=== PATIENT | male | born 1990 | race Two or more races ===

== ENCOUNTER 2021-07-20 19:03 | Emergency (ER) | payer MEDICAID ==
[~2021-07-20] VITALS: Ht 182.9 cm; Wt 80.0 kg
[~2021-07-20 19:03] MED LIST: AMOX1TAB64 PO; BISA10SU54 PR; BUPR1FIL5 SL; CHOL10003 PO; DOXY100T23 PO; FLUC100T PO; ONDA8TAB9 PO; OXYB5TAB10 PO; SIMV20TA19 PO
[2021-07-20 21:08] LABS: BASOPHILS % (AUTO) 0 % (0-1); EOSINOPHILS % (AUTO) 0 % (1-7); LYMPHOCYTES % (AUTO) 22 % (22-44); MEAN CORPUSCULAR HEMOGLOBIN 29.2 pg (27.5-34.5); MEAN CORPUSCULAR HGB CONC 34.7 g/dL (33.2-36.2); MEAN PLATELET VOLUME 8.3 fL (7.4-10.4); MONOCYTES % (AUTO) 8 % (2-9); NEUTROPHILS % (AUTO) 69 % (42-75); PLATELET COUNT 259 x10^3/uL (130-400); RED BLOOD COUNT 5.29 x10^6/uL (4.38-5.82); RED CELL DISTRIBUTION WIDTH 13.3 % (9.4-14.8)
[2021-07-20 21:13] LABS: ALBUMIN 3.7 g/dL (3.4-5.0); ANION GAP 5 mmol/L (5-15); CHLORIDE 105 mmol/L (98-107)
[2021-07-20 21:17] LABS: ALANINE AMINOTRANSFERASE 31 U/L (12-78); ALKALINE PHOSPHATASE 92 U/L (45-117); BILIRUBIN,TOTAL 0.4 mg/dL (0.2-1.0); CREATININE 0.83 mg/dL (0.7-1.3); TOTAL PROTEIN 8.2 g/dL (6.4-8.2)
--- NOTE | 2021-07-20 21:53 | NUR ---
hand outside cutter: patient to room from lobby.
--- NOTE | 2021-07-20 21:56 | NUR ---
PT C/O OF HEADACHED, FEVER/CHILLS, DIFFICULTY BREATHING, BODY ACHES, AND COUGH PT STATES HIS GF MIGHT HAVE COVID. REPORTS NAUSEA AND DIARRHEA ATTACHED TO MONITORS, VSS, NADN. BED IN LOW, PT IN GOWN, RAILS ENGAGED. CALL LIGHT ON LAP. PT PARAPLEGIC WASTE DOWN.
[2021-07-20] MEDS ORDERED: POTASSIUM CHLORIDE 20 MEQ TAB.ER.PRT PO ONE (22:00)
[2021-07-20] MEDS ORDERED: SODIUM CHLORIDE FLUSH 10ML SYR IVF ONE (22:00)
[2021-07-20] MEDS ORDERED: SODIUM CHLORIDE 0.9% 1,000ML IVBOLUS ONE (22:00)
[2021-07-20] MEDS ORDERED: DEXAMETHASONE 4 MG TABLET PO ONE (22:00)
[2021-07-20] MEDS ORDERED: IBUPROFEN 800 MG TABLET PO ONE (22:00)
[2021-07-20] MEDS ORDERED: POTASSIUM CHLORIDE 20 MEQ TAB.ER.PRT ONE (22:03)
[2021-07-20] MEDS ORDERED: DEXAMETHASONE 4 MG/ML, 1ML ONE (22:08)
[2021-07-20] MEDS ORDERED: IBUPROFEN 600 MG TABLET ONE (22:08)
[2021-07-20] MEDS ORDERED: IBUPROFEN 800 MG TABLET ONE (22:10)
[2021-07-20] MEDS ORDERED: DEXAMETHASONE 4 MG TABLET ONE (22:26)
--- NOTE | 2021-07-20 22:55 | NUR ---
PT PUT UP FOR RECHECK
[2021-07-20 23:49] VITALS: BP 115/70
--- NOTE | 2021-07-20 23:50 | NUR ---
PA AT BEDSIDE LIZABETH CALDERON INSTRUCTIONS TO PT
--- NOTE | 2021-07-21 00:06 | NUR ---
Patient/Caregiver given discharge instructions and they have confirmed that they understand the instructions. Patient wheelchaired out. NAD, all questions answered appropriately, denies additional needs at this time. No personal belongings left in room after discharge.
== END 2021-07-21 00:08 | disposition home or self-care (01) ==
LOC: ED 22:11
DX: U07.1 COVID-19 (principal); J18.9 Pneumonia, unspecified organism; B34.9 Viral infection, unspecified; J06.9 Acute upper respiratory infection, unspecified; E87.6 Hypokalemia
CPT/HCPCS: 36415; 71045; 80053; 85025; 96360; 99284; J7030; U0003; U0005